=== PATIENT | female | born 1945 | race Caucasian/White ===

== ENCOUNTER 2017-10-10 06:57 | Emergency (ER) | payer MEDICARE ==
[2017-10-10 07:00] VITALS: BP 148/68; PULSE 60; RESP 16; TEMP 96.2; O2SAT 100
[2017-10-10 07:17] VITALS: BP 108/54; TEMP 97.3; O2SAT 100
[2017-10-10] MEDS ORDERED: OMEP20TA93 PO (07:20)
[2017-10-10] MEDS ORDERED: MIRA0.12 PO (07:20)
[2017-10-10] MEDS ORDERED: AMBI5TAB PO (07:20)
[2017-10-10] MEDS ORDERED: LORA-650 PO (07:20)
[2017-10-10] MEDS ORDERED: CARV6.252 PO (07:20)
[2017-10-10] MEDS ORDERED: LISI2.5T3 PO (07:20)
[2017-10-10] MEDS ORDERED: TOPI25 PO (07:20)
[2017-10-10] MEDS ORDERED: FLUO-1 PO (07:20)
--- NOTE | 2017-10-10 07:31 | PD ---
HPI Chief Complaint: Fall Time Seen by Provider: 07:21 Travel History International Travel<30 days: No Contact w/Intl Traveler<30days: No Traveled to known affect area: No History of Present Illness HPI The patient was seen and examined in the presence of the nurse. Patient complains of right-sided groin pain. She slipped in fell yesterday at 4 PM. Severity of symptoms as moderate. She has pain with weightbearing. Duration as 15 hours. No alleviating factors. PFSH Past Medical History Cardiovascular Problems: Yes (MURMUR) ?: Not Social History Alcohol Use: No Tobacco Use: No Substance Use: No Allergies-Medications (Allergen,Severity, Reaction): Coded Allergies: No Known Allergies (Unverified , 10/10/17) Reported Meds & Prescriptions Reported Meds & Active Scripts Active Tramadol (Tramadol HCl) 50 Mg Tab 50 Mg PO Q6H PRN Reported Allergy Relief (Loratadine) 10 Mg Tab 10 Mg PO DAILY Topamax (Topiramate) 25 Mg Tab 25 Mg PO HS Mirapex (Pramipexole Dihydrochloride) 0.125 Mg Tab 0.125 Mg PO HS Omeprazole 20 Mg Tab 20 Mg PO DAILY Carvedilol 6.25 Mg Tab 6.25 Mg PO BID Lisinopril 2.5 Mg Tab 2.5 Mg PO DAILY Ambien (Zolpidem Tartrate) 5 Mg Tab 5 Mg PO HS PRN Prozac (Fluoxetine HCl) 10 Mg Cap 5 Mg PO DAILY Review of Systems General / Constitutional: No: Fever Eyes: No: Visual changes HENT: No: Headaches Cardiovascular: No: Chest Pain or Discomfort Respiratory: No: Shortness of Breath Gastrointestinal: No: Abdominal Pain Genitourinary: No: Dysuria Musculoskeletal: Positive: Pain Skin: No Rash Neurologic: No: Weakness Psychiatric: No: Depression Endocrine: No: Polydipsia Hematologic/Lymphatic: No: Easy Bruising Physical Exam Narrative GENERAL: Well-nourished, well-developed patient in no apparent distress. SKIN: Focused skin assessment reveals no rash and nodules. Skin is Warm and dry. HEAD: Atraumatic. Normocephalic. EYES: Pupils equal and round. No scleral icterus. No injection or drainage. ENT: No nasal bleeding or discharge. Mucous membranes pink and moist. NECK: Trachea midline. No JVD. CARDIOVASCULAR: Regular rate and rhythm. No murmur appreciated. RESPIRATORY: No accessory muscle use. Clear to auscultation. Breath sounds equal bilaterally. GASTROINTESTINAL: Abdomen soft, non-tender, nondistended. Hepatic and splenic margins not palpable. MUSCULOSKELETAL: No obvious deformities. No clubbing. No cyanosis. No edema. Has pain with palpation of the right inferior pubic ramus region. Good range of motion of right hip without symptoms. No bruising or deformity NEUROLOGICAL: Awake and alert. No obvious cranial nerve deficits. Motor grossly within normal limits. Normal speech. PSYCHIATRIC: Appropriate mood and affect; insight and judgment normal. Data Data Last Documented VS Vital Signs Date Time Temp Pulse Resp B/P (MAP) Pulse Ox O2 Delivery O2 Flow Rate FiO2 10/10/17 07:17 97.3 108/54 (72) 100 10/10/17 07:00 60 16 Orders Orders Hip, Lat Only W Ap Pelvis (10/10/17 ) Spine, Lumbar - Ltd (Ap & Lat) (10/10/17 ) MDM Medical Decision Making Medical Screen Exam Complete: Yes Emergency Medical Condition: Yes Medical Record Reviewed: Yes Differential Diagnosis Pelvic fracture, groin strain, contusion Narrative Course I have reviewed the patient's electronic medical record. I reviewed her pelvic x-ray which is negative I reviewed her right hip x-ray which is negative I reviewed her lumbar spine x-rays which show diffuse arthritic change but no acute fracture. results reviewed patient. Recommend walker use until pain has improved. Tramadol written an orthopedic follow-up recommended Diagnosis Primary Impression: Strain of muscle of right groin region Additional Instructions: Recommend walker use until pain-free. use ice as needed The patient was warned about potential sedation for the medications they will receive on prescription. The patient was advised to follow up with their physician and return if they worsen. Med/Other Pt SpecificInfo: Prescription(s) given Scripts Tramadol (Tramadol) 50 Mg Tab 50 MG PO Q6H Y for PAIN, #20 TAB 0 Refills Prov: Lamont Aquino MD 10/10/17 Disposition: 01 DISCHARGE HOME Condition: Stable Lamont Aquino MD Oct 10, 2017 07:31
--- NOTE | 2017-10-10 08:04 | RADRPT ---
EXAM DATE/TIME: 10/10/2017 07:45 [facility] COMPARISON: No previous studies available for comparison. INDICATIONS : Fall, low back pain. MEDICAL HISTORY : None. SURGICAL HISTORY : None. ENCOUNTER: Initial ACUITY: 2 days PAIN SCORE: 10/10 LOCATION: low back FINDINGS: Diffuse decreased bone mineralization. Numerous surgical clips overlie the pelvis as well as clips in the right upper quadrant and metallic coil embolization material right upper quadrant. There is benji re disc space narrowing at L3-4 and L4-5, moderate to L5-S1 with vacuum disc phenomenon and endplate sclerosis. There are no compression deformities. Grade 1 retrolisthesis of L1 on L2 and T12 on L1 karan ntified. Aortic and iliac artery calcifications. Moderate facet hypertrophic changes. CONCLUSION: Degenerative changes and diffuse decreased bone density. Atherosclerosis. Anuel Valladares MD on October 10, 2017 at 8:02 Board Certified Radiologist. This report was verified electronically.
--- NOTE | 2017-10-10 08:05 | RADRPT ---
EXAM DATE/TIME: 10/10/2017 07:45 [facility] COMPARISON: No previous studies available for comparison. INDICATIONS : Fall, right groin pain. MEDICAL HISTORY : None. SURGICAL HISTORY : None. ENCOUNTER: Initial ACUITY: 2 days PAIN SCORE: 10/10 LOCATION: Right groin FINDINGS: Diffuse decreased bone density. Degenerative changes of the lower lumbar spine. Surgical clips overli e the pelvis. No fractures. CONCLUSION: No acute disease. Anuel Valladares MD on October 10, 2017 at 8:03 Board Certified Radiologist. This report was verified electronically.
[2017-10-10] MEDS ORDERED: TRAM50TA PO (08:12)
== END 2017-10-10 08:25 | disposition home or self-care (01) ==
LOC: PHED 06:57
DX: S39.011A Strain of muscle, fascia and tendon of abdomen, initial encounter (principal); W01.0XXA Fall on same level from slipping, tripping and stumbling without subsequent striking against object, initial encounter
CPT/HCPCS: 72100; 73501; 99284